=== PATIENT | female | born 1985 | race Caucasian/White ===

== ENCOUNTER 2023-01-10 23:19 | Emergency (ER) | payer BC, SELFPAY | END 2023-01-11 00:43 | disposition home or self-care (01) | LOC: ERS 23:19 | DX: S61.512A Laceration without foreign body of left wrist, initial encounter (principal); W26.8XXA Contact with other sharp object(s), not elsewhere classified, initial encounter; Y93.G3 Activity, cooking and baking | CPT/HCPCS: 12001 ==

== ENCOUNTER 2023-01-13 23:14 | Emergency (ER) | payer SELFPAY ==
[2023-01-14] MEDS ORDERED: Bacitracin 1 PK ONE ×2 (00:26→00:45)
== END 2023-01-14 00:49 | disposition home or self-care (01) ==
LOC: ERS 23:14
DX: S61.512A Laceration without foreign body of left wrist, initial encounter (principal); L08.9 Local infection of the skin and subcutaneous tissue, unspecified; W26.8XXA Contact with other sharp object(s), not elsewhere classified, initial encounter
CPT/HCPCS: 99282

== ENCOUNTER 2023-03-15 14:12 | Emergency (ER) | payer SELFPAY ==
[2023-03-15 16:49] LABS: SARS-CoV-2 NAA Rapid Test Not Detected (NotDetected)
== END 2023-03-15 16:00 | disposition home or self-care (01) ==
LOC: ERS 14:12
DX: J06.9 Acute upper respiratory infection, unspecified (principal); H66.92 Otitis media, unspecified, left ear; Z20.828 Contact with and (suspected) exposure to other viral communicable diseases; Z20.822 Contact with and (suspected) exposure to COVID-19
CPT/HCPCS: 99284